=== PATIENT | female | born 1985 | race Hispanic/Latino ===

== ENCOUNTER 2018-04-29 00:35 | Emergency (ER) | payer SELFPAY ==
[2018-04-29 01:06] VITALS: RESP 18
--- NOTE | 2018-04-29 01:54 | ED PDOC ---
HPI: Psych/Substance Abuse Time Seen by Provider: 04/29/18 00:51 Chief Complaint (Nursing): Psychiatric Evaluation Chief Complaint (Provider): Medical Exam Past Medical History Reviewed: Historical Data, Nursing Documentation, Vital Signs Vital Signs: Last Vital Signs Temp 98.4 F 04/29/18 00:49 Pulse 108 H 04/29/18 00:49 Resp 18 04/29/18 00:49 BP 146/96 H 04/29/18 00:49 Pulse Ox 98 04/29/18 00:49 - Medical History PMH: Denies: HIV - Family History Family History: States: Unknown Family Hx - Home Medications Home Medications: Ambulatory Orders Medication Instructions Recorded Ibuprofen [Motrin] 600 mg PO Q8 PRN #0 tab 12/25/13 Naproxen [Naprosyn] 500 mg PO BID #20 tablet 04/24/16 - Allergies Allergies/Adverse Reactions: Allergies Allergy/AdvReac Type Severity Reaction Status Date / Time oxycodone Allergy ANAPHYLAXIS Verified 04/29/18 01:13 Review of Systems ROS Statement: Except As Marked, All Systems Reviewed And Found Negative Psych: Positive for: Anxiety, Depression Physical Exam - Reviewed Nursing Documentation Reviewed: Yes Vital Signs Reviewed: Yes - Physical Exam Appears: Positive for: Well, Non-toxic, No Acute Distress. Negative for: Uncomfortable Head Exam: Positive for: ATRAUMATIC, NORMAL INSPECTION Skin: Positive for: Normal Color, Warm, Dry. Negative for: Diaphoresis, Pallor, Rash Eye Exam: Positive for: Normal appearance, PERRL. Negative for: Nystagmus, Periorbital swelling, Periorbital tenderness ENT: Positive for: Normal ENT Inspection Neck: Positive for: Normal, Painless ROM, Supple, Decreased ROM Cardiovascular/Chest: Positive for: Regular Rate, Rhythm, Chest Non Tender. Negative for: Bradycardia, Tachycardia Respiratory: Positive for: Normal Breath Sounds Pulses-Carotid (L): 2+ Pulses-Carotid (R): 2+ Pulses-Radial (L): 2+ Pulses-Radial (R): 2+ - ECG O2 Sat by Pulse Oximetry: 98 Disposition - Clinical Impression Clinical Impression: Encounter for medical clearance for patient hold - Patient ED Disposition Is Patient to be Admitted: No Doctor Will See Patient In The: Office Counseled Patient/Family Regarding: Diagnosis, Need For Followup - Disposition Disposition: Routine/Home Disposition Time: 01:54 Condition: STABLE Forms: [employer] ([place])
[2018-04-29 02:27] VITALS: BP 131/74; PULSE 87; TEMP 97.7
[2018-04-30 05:24] VITALS: O2SAT 98
== END 2018-04-29 02:17 | disposition home or self-care (01) ==
LOC: H.ER 00:35
DX: Z00.00 Encounter for general adult medical examination without abnormal findings (principal); Z88.5 Allergy status to narcotic agent; Z86.59 Personal history of other mental and behavioral disorders